=== PATIENT | male | born 1980 | race Caucasian/White ===

== ENCOUNTER → 2019-09-20 16:00 | Outpatient (CLI) | payer OTHER, SELFPAY ==
[2019-09-20 16:32] LABS: Hemoglobin A1C% w Est Avg Glu 4.9 % (4.0-6.0)
[2019-09-20 17:22] LABS: Cholesterol 167 mg/dL (140-199); HDL Cholesterol 48 mg/dL (40-60); LDL Cholesterol Calculated 106 mg/dL (<100); Triglycerides 64 mg/dL (35-150)
== END ==
PROVIDERS: Visit Provider Family Medicine
DX: Z13.1 Encounter for screening for diabetes mellitus (principal); Z13.220 Encounter for screening for lipoid disorders
CPT/HCPCS: 36415; 80061; 83036

== ENCOUNTER → 2020-07-24 11:50 | Outpatient (CLI) | payer OTHER, SELFPAY ==
[2020-07-25 14:23] LABS: COVID19 Sendout Not Detected (Not Detect)
== END ==
PROVIDERS: Visit Provider Nurse Practitioner
DX: Z11.59 Encounter for screening for other viral diseases (principal)
CPT/HCPCS: 87635